=== PATIENT | female | born 1965 | race Caucasian/White ===

== ENCOUNTER 2023-12-07 10:06 | Day surgery (SDC) | payer OTHER ==
[~2023-12-07] VITALS: Ht 162.6 cm; Wt 95.3 kg
[2023-12-07] MEDS ORDERED: MIDAZOLAM 2 MG/2 ML VIAL ONE (11:36)
[2023-12-07] MEDS ORDERED: fentaNYL citrate 0.05 MG/ML VIAL ONE (11:37)
[2023-12-07] MEDS ORDERED: MIDAZOLAM 5 MG/5 ML VIAL ONE (11:37)
[2023-12-07] MEDS: MIDAZOLAM 5 MG/5 ML VIAL IV ONE (12:38)
== END 2023-12-07 14:10 | disposition home or self-care (01) ==
LOC: MDS 10:06 → MMU 10:06 → MDS 14:10
PROVIDERS: ATTEND Internal Medicine Gastroenterology
DX: R13.10 Dysphagia, unspecified (principal); R10.11 Right upper quadrant pain; D17.5 Benign lipomatous neoplasm of intra-abdominal organs; J45.909 Unspecified asthma, uncomplicated; E05.90 Thyrotoxicosis, unspecified without thyrotoxic crisis or storm; Z98.51 Tubal ligation status; Z90.49 Acquired absence of other specified parts of digestive tract; Z79.899 Other long term (current) drug therapy
CPT/HCPCS: 43235; J2250; J3010